=== PATIENT | male | born 1955 | race Caucasian/White ===

== ENCOUNTER → 2023-12-08 10:10 | Outpatient (REF) | payer MEDICARE, SELFPAY | LOC: RAD 10:10 | PROVIDERS: ATTENDING PHYSICIAN Family Medicine | DX: R60.0 Localized edema (principal) | CPT/HCPCS: 93970 ==

== ENCOUNTER → 2023-12-21 12:00 | Outpatient (REF) | payer MEDICARE, SELFPAY | LOC: DHSLP 12:00 | PROVIDERS: ATTENDING PHYSICIAN Internal Medicine Critical Care Medicine; FAMILY PHYSICIAN Family Medicine | DX: G47.33 Obstructive sleep apnea (adult) (pediatric) (principal); R09.02 Hypoxemia | CPT/HCPCS: 95800 ==

== ENCOUNTER → 2023-12-30 12:02 | Outpatient (REF) | payer MEDICARE, SELFPAY | LOC: PAVMRI 12:02 | PROVIDERS: ATTENDING PHYSICIAN Family Medicine | DX: M54.40 Lumbago with sciatica, unspecified side (principal); M51.36 Other intervertebral disc degeneration, lumbar region | CPT/HCPCS: 72148 ==

== ENCOUNTER → 2024-01-10 14:17 | Outpatient (REF) | payer MEDICARE, SELFPAY | LOC: RAD 14:17 | PROVIDERS: ATTENDING PHYSICIAN Family Medicine | DX: I73.9 Peripheral vascular disease, unspecified (principal) | CPT/HCPCS: 93922; 93925 ==

== ENCOUNTER → 2024-12-27 08:32 | Outpatient (REF) | payer MEDICARE, SELFPAY | LOC: MRI 08:32 | PROVIDERS: ATTENDING PHYSICIAN Family Medicine | DX: M51.362 Other intervertebral disc degeneration, lumbar region with discogenic back pain and lower extremity pain (principal) | CPT/HCPCS: 72148 ==

== ENCOUNTER → 2025-01-28 10:49 | Outpatient (REF) | payer MEDICARE, SELFPAY | LOC: HWRAD 10:49 | PROVIDERS: ATTENDING PHYSICIAN Family Medicine | DX: I77.811 Abdominal aortic ectasia (principal) | CPT/HCPCS: 76770 ==

== ENCOUNTER → 2025-01-30 13:32 | Outpatient (REF) | payer MEDICARE, SELFPAY | LOC: EMG 13:32 | PROVIDERS: ATTENDING PHYSICIAN Family Medicine | DX: R20.2 Paresthesia of skin (principal) | CPT/HCPCS: 95886; 95911 ==

== ENCOUNTER 2025-02-06 06:27 | Day surgery (SDC) | payer MEDICARE, SELFPAY | END 2025-02-06 06:28 | disposition home or self-care (01) | LOC: GI 06:27 | PROVIDERS: ATTENDING PHYSICIAN Internal Medicine Gastroenterology | DX: I48.92 Unspecified atrial flutter (principal); K63.5 Polyp of colon; K21.9 Gastro-esophageal reflux disease without esophagitis; Z53.9 Procedure and treatment not carried out, unspecified reason | CPT/HCPCS: G0105; 93005 ==

== ENCOUNTER 2025-02-06 13:39 | Emergency (ER) | payer MEDICARE, SELFPAY ==
[2025-02-06 13:42] VITALS: BP 131/80
[2025-02-06 14:14] LABS: Hematocrit 47.9 % (39.0-52.0); Hemoglobin 16.6 g/dL (13.0-18.0); Mean Corp Hgb Conc. 34.7 g/dL (33.0-37.0); Mean Corpuscular Volume 87.9 fL (80.0-94.0); Nucleated Red Blood Cells % 0 % (-); Platelet Count 221 10^3/uL (130-400); Red Cell Dist. Width 13.1 % (11.5-14.5)
[2025-02-06 14:41] VITALS: BMI 39.3
[2025-02-06 14:42] VITALS: BP 124/83
[2025-02-06 14:44] LABS: ALT (SGPT) 24 U/L (0-50); AST (SGOT) 27 U/L (17-59); Albumin 4.6 g/dl (3.5-5.0); Alkaline Phosphatase 101 U/L (38-126); Blood Urea Nitrogen 18 mg/dl (9-20); Calcium 9.8 mg/dl (8.4-10.2); Carbon Dioxide 24 mmol/L (22-30); Chloride 100 mmol/L (98-107); Glucose 108 mg/dl (70-99); Potassium 4.6 mmol/L (3.5-5.1); Sodium 134 mmol/L (135-145); Total Protein 7.4 g/dl (6.3-8.2); eGFR > 60.00
[2025-02-06 15:00] VITALS: BP 132/71
--- NOTE | 2025-02-06 15:31 | ED.GENMED ---
History of Present Illness
General
Chief Complaint: Cardiac Symptoms
Source: patient and spouse
Exam Limitations: none
Time Seen by Provider: 02/06/25 14:33
Nursing documentation reviewed up to this point in time: agreed with
History of Present Illness
History of Present Illness:
69-year-old male past medical history of hypertension hyperlipidemia peripheral vascular disease previous smoker presenting to the emergency department today after being found to be in atrial flutter prior to getting a colonoscopy. Was sent to the
ER for assessment he denies any chest pain shortness of breath or palpitations. Denies any known history of atrial fibrillation.
Past History
Past History
ED Past Medical History: COPD, GERD, HTN, Hypercholesterolemia and Other (Herniated disc, )
ED Past Surgical History: Orthopedic (Left hip replacement, Right rotator cuff surgery), Tonsilectomy and Other (Hernia repair)
Social History
Tobacco: Smoker
Alcohol: Daily (Beer 6)
Personal:
Living: with family
Family History
Family History: Unable to obtain
Review of Systems
Review of Systems
Allergies reviewed?: Yes
All Other Systems: ROS reviewed and negative except as documented in HPI and ROS
Phy Exam
Physical Exam
Physical Exam:
GENERAL: Alert , in no apparent distress
EYE: pupils equal and reactive
NECK: Supple, no significant adenopathy.
ENT: o/p clr, mmm.
CARDIAC: Irregularly irregular
LUNGS: Clear breath sounds bilaterally, no acute respiratory distress, no wheezes/rales/rhonchi
ABDOMEN: Soft, without focal tenderness, no r/g, no cvat
NEUROLOGICAL: Alert and oriented, no focal neuro deficits
SKIN: Warm and dry, skin intact.
MUSCULOSKELETAL: No edema, well perfused.
PSYCH: Normal and appropriate interaction.
Course
Orders/Labs/Results
Orders:
Orders
02/06/25 13:42
Electrocardiogram (*1) Urgent
Reason for Study: Atrial Flutter
EKG- Treatment ONCE
02/06/25 14:05
CMP [Comprehensive Metabolic Panel] Urgent
Complete Blood Count/With Diff Urgent
02/06/25 15:28
Metoprolol Xl [Toprol Xl] 25 mg PO NOW STA
02/06/25 15:29
Apixaban [Eliquis] 5 mg PO ONCE ONE
Abnormal Lab Results
02/06/25
14:05
Absolute Neuts (auto) 6.6 H 10^3/uL
(1.4-6.5)
Absolute Monos (auto) 0.8 H 10^3/uL
(0.1-0.6)
Lymphocytes % 14.5 L %
(20.5-51.1)
Sodium 134 L mmol/L
(135-145)
Glucose 108 H mg/dl
(70-99)
Total Bilirubin 1.4 H mg/dl
(0.2-1.3)
02/06/25 14:05
02/06/25 14:05
Vital Signs
Initial and Last Documented VS:
Initial Vital Signs
Temp Pulse Resp BP Pulse Ox
99.3 F 66 20 131/80 95
02/06/25 13:42 02/06/25 13:42 02/06/25 13:42 02/06/25 13:42 02/06/25 13:42
Last Documented Vital Signs
Temp Pulse Resp BP Pulse Ox
99.3 F 106 15 124/83 95
02/06/25 13:42 02/06/25 14:45 02/06/25 14:45 02/06/25 14:42 02/06/25 14:45
MDM/Problems Addressed
MDM/Problems Addressed:
69-year-old male presenting to the emergency department with a flutter. Confirmed on EKG here. Rate controlled between 90 and 110 while here in the ER. Patient is asymptomatic. Patient denies any previous treatment or history of atrial
fibrillation. Case was discussed with cardiology recommending anticoagulant metoprolol and close outpatient follow-up. Otherwise patient stable for discharge. Return precautions given.
*Pulse Oximetry
SaO2: 95
Patient hypoxic: no (95)
*Critical Care Note
Total Time (30-74mins, 75-104mins- exclusive of procedures): Not Applicable
ED Attending Note
-
Portions of this chart may have been created with voice recognition software.� Occasional wrong word or��sound alike� substitutions may have occurred due to the inherent limitations of voice recognition software.
Discharge Plan
Departure
Patient Disposition: Home (Routine Discharge)
Date of Disposition: 02/06/25
Time of Disposition: 15:33
Patient with high blood pressure during this ER visit?: No
Condition: Good
Covid-19: Not Applicable
Discharge Problem:
Atrial flutter
Instructions: Chest Pain CBC Follow Up
Prescriptions:
New
Eliquis 5 mg tablet
5 mg PO BID 30 Days Qty: 60 0RF
metoprolol succinate [Toprol XL] 25 mg tablet extended release 24 hr
25 mg PO DAILY 30 Days Qty: 30 0RF
No Action
gabapentin [Neurontin] 600 MG tablet
300 mg PO HS
Patient Comments:
sometimes takes twice a day
omeprazole 20 MG capsule,delayed release(DR/EC)
20 mg PO DAILY
citalopram 10 MG tablet
10 mg PO DAILY
Ultram ER
300 mg PO DAILY
ig-wlh-DY-Zg-Fo-eputydy-lutein 1 EACH tablet
1 tab PO DAILY
sennosides [senna] 1 TABLET tablet
2 tab PO BID Qty: 0 0RF
acetaminophen 325 MG tablet
650 mg PO QID Qty: 0 0RF
polyethylene glycol 3350 17 GRAMS powder in packet
17 grams PO DAILY Qty: 0 0RF
thiamine HCl (vitamin B1) 100 MG tablet
100 mg PO DAILY Qty: 0 0RF
magnesium hydroxide 30 ML suspension
30 ml PO DAILYPRN PRN (Reason: constipation) Qty: 0 0RF
aspirin 325 MG tablet,delayed release (DR/EC)
325 mg PO DAILY Qty: 0 0RF
amlodipine 10 MG tablet
10 mg PO DAILY Qty: 0 0RF
docusate sodium 100 MG capsule
100 mg PO BID Qty: 0 0RF
alum-mag hydroxide-simeth [Mag-Al Plus] 30 ML suspension
30 ml PO Q4HPRN PRN (Reason: INDIGESTION) Qty: 0 0RF
oxycodone 5 MG tablet
5 mg PO Q4HPRN PRN (Reason: mild, modertae,severe pain) Qty: 120 0RF
Rx Instructions:
dx CINDY
1-2-or 3 tabs
prednisone 20 mg tablet
40 mg PO DAILY Qty: 4 0RF
Activity Restrictions/Additional Instructions:
You came to the emergency department today with concerns of an abnormal EKG. You were found to be in atrial flutter. Please take the prescribed anticoagulant as well as the metoprolol. Please follow-up closely with cardiology for further
recommendation. Return for any worsening, new or concerning symptoms.
Interventions
Interventions:
*Risk Screen - Suicide Last Done: 02/06/25 13:42
*General Assessment Last Done: 02/06/25 13:42
*Neglect/Abuse Screening Last Done: 02/06/25 14:41
*ED- Fall Risk Assessment Last Done: 02/06/25 14:41
*ED COVID-19 Vaccine History Last Done: 02/06/25 14:41
ED- Cardiac Assessment Last Done: 02/06/25 14:41
ED- Pulmonary Assessment Last Done: 02/06/25 14:41
Discharge Date and Time
Print Language: BULGARIAN
[2025-02-06] MEDS: ELIQUIS 5 MG PO (15:58)
[2025-02-06] MEDS: TOPROL XL 25 MG PO (15:59)
[2025-02-06 16:00] VITALS: BP 132/67
[2025-02-06 16:21] VITALS: BP 122/64
== END 2025-02-06 16:30 | disposition home or self-care (01) ==
LOC: EMR 13:39
PROVIDERS: Emergency Medicine; EMERGENCY PHYSICIAN Emergency Medicine; FAMILY PHYSICIAN Family Medicine
DX: I48.92 Unspecified atrial flutter (principal); E78.00 Pure hypercholesterolemia, unspecified; I10 Essential (primary) hypertension; J44.9 Chronic obstructive pulmonary disease, unspecified; F17.200 Nicotine dependence, unspecified, uncomplicated
CPT/HCPCS: 99284; 80053; 85025; 93005

== ENCOUNTER → 2025-03-12 10:24 | Outpatient (REF) | payer MEDICARE, SELFPAY ==
[2025-03-12 10:55] LABS: Hematocrit 45.2 % (39.0-52.0); Hemoglobin 15.4 g/dL (13.0-18.0); Mean Corp Hgb Conc. 34.1 g/dL (33.0-37.0); Mean Corpuscular Volume 86.6 fL (80.0-94.0); Nucleated Red Blood Cells % 0 % (-); Platelet Count 254 10^3/uL (130-400); Red Cell Dist. Width 13.2 % (11.5-14.5)
[2025-03-12 11:44] LABS: ALT (SGPT) 19 U/L (0-50); AST (SGOT) 21 U/L (17-59); Albumin 4.2 g/dl (3.5-5.0); Alkaline Phosphatase 84 U/L (38-126); Blood Urea Nitrogen 22 mg/dl (9-20); Calcium 9.6 mg/dl (8.4-10.2); Carbon Dioxide 24 mmol/L (22-30); Chloride 103 mmol/L (98-107); Glucose 123 mg/dl (70-99); Potassium 4.7 mmol/L (3.5-5.1); Sodium 132 mmol/L (135-145); Total Protein 7.1 g/dl (6.3-8.2); eGFR > 60.00
== END ==
LOC: SDSPAT 10:24
PROVIDERS: ATTENDING PHYSICIAN Internal Medicine Cardiovascular Disease; FAMILY PHYSICIAN Family Medicine; OTHER PHYSICIAN Student in an Organized Health Care Education/Training Program
DX: I48.3 Typical atrial flutter (principal)
CPT/HCPCS: 36415; 80053; 85025; 86850; 86900; 86901

== ENCOUNTER 2025-03-21 07:58 | Day surgery (SDC) | payer MEDICARE, SELFPAY ==
[2025-03-12 13:31] VITALS: BMI 39.8
[2025-03-21] VITALS (12 sets, daily range): BP systolic 80–133; BP diastolic 55–86
--- NOTE | 2025-03-21 11:45 | ITS.CL.ABL ---
Test Deskman - Ablation
Ablation
Procedure Report:
Atrial Flutter ablation:
Mr. Larios is a very pleasant 69 yr old gentleman with multiple recurrence of atrial flutter presented for EP study and ablation.
Date of the Procedure:
03/21/2025
Indications:
Atrial flutter with RVR.
Pre-Operative Diagnosis:
Typical Atrial Flutter
Post-Operative Diagnosis:
Supra-ventricular tachycardia with Typical Atrial Flutter
Procedure Performed:
Atrial flutter ablation with cavo-tricuspid isthmus line block formation
Performing Physician:
Augusto Esquivel MD
Assistants:
EP staff
Anesthesia:
See anesthesia records
Detailed Description of the Procedure:
Written informed consent was obtained from the patient after a full explanation of the risks and benefits of the procedure including the risks of sedation and anesthesia.
The patient was brought to the electrophysiology laboratory in stable condition in fasting state. Continuous electrocardiographic and hemodynamic monitoring was initiated.
The initial rhythm was atria flutter.
The procedure site was meticulously prepared with surgical scrub and allowed to dry with no pooling. Sterile draping was applied to cover the procedure site. The image intensifier was draped with sterile bag and positioned over the patient.
After infusion of local anesthetic, vascular access was obtained under ultrasound guidance and sheaths were placed over guide wire as detailed below.
Sheath and Catheter Placement:
The following catheters / sheaths were placed
Sheaths:
8Fr in right femoral vein � upgraded to Agilis sheath
9Fr in the right femoral vein
Catheters:
[employer] Thermocool STSF bidirectional - at locations of HRA, RV, CS and His.
Decapolar catheter - at locations of CS
A 5000 units of heparin was given after the access was complete.
Tachycardia:
The tachycardia was studied in detail.� the cycle length was 240 msec. The entrainement from the CTI isthmus and the prox CS was in the flutter circuit. The distal CS was out of the circuit indicating right atrial flutter.
Electroanatomic mapping (EAM):
The right atrium was mapped in the tachycardia. The tachycardia was fast but hemodynamically stable and could be mapped. The obtained maps of the tachycardia and the electrograms were studied in detail. EAM showed counter clockwise typical atrial
flutter with cavo tricuspid isthmus dependence
Ablation # 1: Typical Atrial Flutter Ablation:
Radiofrequency ablation was performed using a 3.5mm, open irrigation, force-sensing bidirectional ablation catheter ([employer] STSF) in the cavotricuspid isthmus from the tricuspid annulus to the IVC ridge.
The flutter slowed and terminated into sinus rhythm once the CTI block was achieved.
Post ablation mapping was done:
Following observations were noted.
-Bidirectional block was confirmed across the CTI line with differential pacing.
-Double potentials were spaced greater than 95 msec apart.
-The conduction time across the CTI line from proximal CS pacing was 160 msec.
-EAM of the right atrium was obtained with coronary sinus pacing and showed a line of block at the CTI.
-The time interval just lateral to the ablation lesions was 160 msec and the lateral wall was 120 msec
- All these maneuvers confirmed the block at the CTI line.
- Post ablation HV interval was unchanged at 45 msec
The patient was observed in the EP lab for 15 minutes and the repeat study showed stable block at the CTI location and CTI conduction time was 160 msec.
Procedure End
Following the completion of the EP study, catheters were removed. The sheaths were removed and hemostasis achieved with figure of 8 suture and manual compression.
Estimated Blood loss:
<5 cc
Specimens Removed:
None.
Implants / Devices:
None
Urine output:
None
Packs / Drains/ Tubes:
None
Instrument / Sponge Count Correct:
Yes
Fluoro time:
0 - Flouroless
Complications of the Procedure:
None
Condition of Patient at Time of Transfer:
Hemodynamically stable with no neurological or vascular compromise.
Summary:
Successful SVT ablation with typical atrial flutter ablation with cavo-tricuspid isthmus line of block formation.
.
--- NOTE | 2025-03-21 16:31 | W.PN.UPDATE ---
Update Note
Progress Note Update
69 yo WM s/p CTI flutter ablation (same day). He denies cp, sob, juve diet, voiding, back pain chronic, EKG SR 1deg AVB, R fem site c/d/i no HT, soft. He will resume Eliquis tonight and continue metoprolol. Activity restrictions reviewed. 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
ENVIRONMENTAL PROGRAM MANAGER in 2 weeks. He is for d/c home after 430p.
== END 2025-03-21 16:30 | disposition home or self-care (01) ==
LOC: CATH 07:58
PROVIDERS: ATTENDING PHYSICIAN Internal Medicine Cardiovascular Disease; FAMILY PHYSICIAN Family Medicine; OTHER PHYSICIAN Student in an Organized Health Care Education/Training Program
DX: I48.3 Typical atrial flutter (principal); I25.10 Atherosclerotic heart disease of native coronary artery without angina pectoris; I10 Essential (primary) hypertension; E78.2 Mixed hyperlipidemia; E66.9 Obesity, unspecified; G47.33 Obstructive sleep apnea (adult) (pediatric); Z79.01 Long term (current) use of anticoagulants; Z79.899 Other long term (current) drug therapy
CPT/HCPCS: C1730; C1732; C1766; C1892; 93005; 93653; C1894